=== PATIENT | female | born 1955 | race Asian ===

== ENCOUNTER 2019-02-03 10:40 | Emergency (ER) | payer SELFPAY ==
[~2019-02-03] VITALS: Ht 160 cm; Wt 62.7 kg
[2019-02-03 11:19] LABS: ALBUMIN 3.5 g/dL (3.4-5.0); ALKALINE PHOSPHATASE 99 U/L (46-116); ALT (SGPT) 19 U/L (10-68); BILIRUBIN - TOTAL 0.55 mg/dL (0.2-1.3); CALC OSMOLALITY 292 mosm/kg (275-300); CALCIUM 8.9 mg/dL (8.5-10.1); CARBON DIOXIDE 32.2 mmol/L (21.0-32.0); CHLORIDE - SERUM 106 mmol/L (98-107); CREATININE - SERUM 0.6 mg/dL (0.6-1.3); GLUCOSE 109 mg/dL (74-106); POTASSIUM - SERUM 3.5 mmol/L (3.5-5.1); PROTEIN - SERUM 7.1 g/dL (6.4-8.2); SODIUM 146 mmol/L (136-145); UREA NITROGEN 15 mg/dL (7-18); eGFR NON AFRICAN AMERICAN > 90 mL/min (90-120)
[2019-02-03 11:27] LABS: BASOPHILS 0.7 % (0-2); EOSINOPHILS 2.1 % (0-7); HEMATOCRIT 40.4 % (36.0-48.0); HEMOGLOBIN 13.3 g/dL (12-16); LYMPHOCYTES 34.8 % (15-50); MCH 29.1 pg (26.0-34.0); MCHC 32.9 g/dL (31.0-37.0); MCV 88.4 fL (80.0-100.0); MEAN PLATELET VOLUME 10.8 fL (7.4-10.4); MONOCYTES 7.1 % (2-11); NEUTROPHILS 55.3 % (40-80); PLATELET COUNT 193 10x3/uL (130-400); RBC 4.57 10x6/uL (4.00-5.40); RDW 13.1 % (11.5-14.5); WBC 4.3 10x3/uL (4.8-10.8)
[2019-02-03 11:31] LABS: CKMB 0.5 U/L (0.0-3.6); CREATINE KINASE 62 UL (21-215); MAGNESIUM - SERUM 2.1 mg/dL (1.8-2.4); TROPONIN-I < 0.017 ng/mL (0.000-0.060)
[2019-02-03 11:32] LABS: INR 1.02 (0.85-1.17); PROTIME 12.9 SECONDS (11.6-15.0)
[2019-02-03 13:45] VITALS: Ht 160 cm; Wt 62.7 kg
[2019-02-03 13:45] LABS: CKMB 0.6 U/L (0.0-3.6); CREATINE KINASE 66 UL (21-215)
[2019-02-03 13:47] LABS: TROPONIN-I < 0.017 ng/mL (0.000-0.060)
[2019-02-03] MEDS ORDERED: NORVASC5 MG PO (15:02)
[2019-02-03] MEDS ORDERED: NITROSTAT0.4 MG SL (15:02)
[2019-02-03 15:24] VITALS: BP 128/73
--- NOTE | 2019-02-06 11:10 | CN ---
PATIENT NAME:SAY SAINI MEDICAL RECORD: [id number] : 57 LOCATION:.ER ADMIT DATE: ACCOUNT: [id number] CONSULTING PHYSICIAN: BRADY YEBOAH MD REFERRING PHYSICIAN: JUDY WALTERS MD DATE OF CONSULTATION: 02/03/2019 CARDIOLOGY CONSULTATION DIAGNOSES: 1. Chest pain compatible with angina. 2. Hypertension. HISTORY OF PRESENT ILLNESS: Mrs. Saini has no previous cardiac history, no previous cardiac workup. She presents with chest pain started today. She had an episode of chest pain 2 weeks ago that was minor, resolved on its own. She had an episode of chest pain today requiring sublingual nitro for resolution. She is pain free now. Her EKG is normal. Troponin is normal. Initially, when she came in her systolic blood pressure was 180. She has no history of hypertension. Even after the nitro, her systolic blood pressure running in the 140-160 range, heart rates running in the 50 range. PHYSICAL EXAMINATION: CONSTITUTIONAL/GENERAL APPEARANCE: Well nourished, well developed, appears stated age. EYES: Lids and conjunctivae noninjected. No discharge. No pallor. ENT: Lips within normal limit. No cyanosis. No pallor. NECK: Carotid arteries, bilateral normal upstroke. No bruits. No thrills. No jugular venous pressure or distention. CERVICAL LYMPH NODES: Nontender. Nonenlarged. THYROID: Not enlarged. No nodules. CARDIOVASCULAR: Precordial exam, nondisplaced. No heaves or pericardial thrills. Rate and rhythm, regular. Heart sounds, normal S1, normal S2. No S3, no gallop, no rub. Systolic murmur, not heard. Diastolic murmur, not heard. RESPIRATORY: Respiratory effort, unlabored. Normal curvature. No thoracic deformity. No chest wall tenderness. Percussion, resonant. Auscultation, clear. No wheezes, no rales, no rhonchi. ABDOMEN: Soft, nondistended, nontender. No abdominal pain, no vomiting and normal appetite. MUSCULOSKELETAL: No joint tenderness, normal gait, normal tone. SKIN: Warm and dry. OVERALL IMPRESSION: Chest pain compatible with angina. I have asked her to have a cardiac workup. She is from [place], she lived her whole life in [place]. Her insurance is in [place]. She wants to go to [place] if at all possible for the workup. She is pain free now. We will give her prescription for sublingual nitro as well as Norvasc 5 mg a day to treat the high blood pressure. We are happy to follow up with her anytime in the future if need be. If she has recurrent chest pain, she plans to seek medical attention in [place]. Once again, we are here for her and she will have our contact information and we have conveyed her that we are happy to see her at any time. TRANSINT:[id number] Voice Confirmation ID: [id number] DOCUMENT ID: [id number] CONSULT REPORT [id number] SAY SAINI, BRADY RICE at 1110 CC: [id number] DICTATION DATE: 02/03/19 1347 LINE INSTALLATION SUPERVISOR: 02/03/19 1609 DEP ER 02/03/19 [id number] [place] [address]
== END 2019-02-03 15:24 | disposition home or self-care (01) ==
LOC: D.ER 10:40
PROVIDERS: Family Medicine
DX: R07.9 Chest pain, unspecified (principal); I10 Essential (primary) hypertension